=== PATIENT | female | born 1935 ===

== ENCOUNTER → 2019-10-21 | Emergency (ER) | payer OTHER, BC ==
[~2019-10-21] VITALS: Ht 157.5 cm; Wt 43.1 kg
[~2019-10-21] MED LIST: MYLANTA GAS MIN42 MG PO; PEPCID AC20 MG PO; SERTRALINE20 MG/1 ML PO; XANAX XR3 MG PO
== END | disposition home or self-care (01) ==
LOC: ER 14:22
DX: K58.9 Irritable bowel syndrome, unspecified (principal)